=== PATIENT | female | born 1990 | race Caucasian/White ===

== ENCOUNTER 2017-06-21 02:29 | Observation (INO) | payer OTHER ==
[~2017-06-21] VITALS: Ht 162.6 cm; Wt 101.2 kg
--- NOTE | 2017-06-21 03:12 | ED GI/GU/ABDOMINAL COMPLAINT ---
History of Present Illness General Chief Complaint: Female Urogenital Problems Stated Complaint: PT C/O ECTOPIC ABD PAIN Source: patient Exam Limitations: no limitations Vital Signs & Intake/Output Vital Signs & Intake/Output Vital Signs Date Time Temp Pulse Resp B/P B/P Pulse O2 O2 Flow FiO2 Mean Ox Delivery Rate 06/21 0509 97 Room Air 06/21 0508 98.1 87 18 132/72 99 Room Air 06/21 0246 98.6 103 18 135/89 100 Room Air Allergies Coded Allergies: No Known Allergies (06/19/17) Triage Note: PT TO ED C.O LLQ PAIN SINCE 1 AM. WAS SEEN HERE 2 DAYS AGO FOR ECTOPIC DIAGNOSED BY DR FLORES VIS US AT HIS OFFICE. RECEIVED IM METHOTREXATE. STATES HAS NOT BEEN IN BAD PAIN UNTIL 1 AM. PAIN WOKE HER FROM SLEEP. TOOK 1000 MG TYLENOL WITH SLIGHT RELIEF. DENIES VAGINAL BLEEDING Triage Nurses Notes Reviewed? yes ? y Is pt currently ? No Onset: Abrupt Duration: hour(s): Timing: recent history Quality/Severity: burning, cramping, sharpness Location: left lower quadrant Radiation: no radiation Activities at Onset: none Prior Abdominal Problems: none Modifying Factors: Worsens With: palpation. Associated Symptoms: abdominal pain HPI: 26yo woman lmp 06/01/17, diagnosed with ectopic on 06/19, received methotrexate on 06/19 at approx 7pm, presents with left lower quadrant abdominal pain x 2 hours. "It just started to hurt... and that's where I have the ectopic." She notes no vaginal bleeding, nausea, vomiting, dizziness. She is otherwise well. Past History Travel History Traveled to [place] past 21 day No Medical History Any Pertinent Medical History? 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 No Review of Systems Review of Systems Constitutional: Reports: no symptoms. EENTM: Reports: no symptoms. Respiratory: Reports: no symptoms. Cardiovascular: Reports: no symptoms. GI: Reports: no symptoms. Genitourinary: Reports: no symptoms. Musculoskeletal: Reports: no symptoms. Skin: Reports: no symptoms. Neurological/Psychological: Reports: no symptoms. Hematologic/Endocrine: Reports: no symptoms. Immunologic/Allergic: Reports: no symptoms. All Other Systems: Reviewed and Negative Physical Exam Physical Exam General Appearance: well developed/nourished, mild distress Head: atraumatic, normal appearance Eyes: Bilateral: normal appearance. Ears, Nose, Throat, Mouth: hearing grossly normal, moist mucous membrane Neck: normal inspection, supple, full range of motion Respiratory: normal breath sounds, chest non-tender, no respiratory distress, quiet respiration, lungs clear Cardiovascular: regular rate/rhythm Gastrointestinal: normal bowel sounds, soft, mild left lower quadrant tenderness to palpation. no rebound. no guarding. Pelvic: no adnexal tenderness. cervix is closed. no vaginal bleeding. Back: normal inspection, normal range of motion Extremities: normal range of motion Neurologic/Psych: no motor/sensory deficits, awake, alert, oriented x 3 Skin: intact, normal color, warm/dry Core Measures ACS in differential dx? No Sepsis Present: No Sepsis Focused Exam Completed? No Progress Differential Diagnosis: ectopic vs other. Plan of Care: Orders Procedure Date/time Status Nothing by Mouth 06/21 B Active HUMAN BETA HCG TITRE 06/21 0800 Active CBC WITHOUT DIFFERENTIAL 06/21 0800 Active US-TRANSVAGINAL 06/21 0451 Active Saline Lock 06/[address] in observation 06/21 0451 Active Misc Message 06/21 0451 Active ED Holding Orders 06/21 0451 Active Patient Data 06/21 0451 Active Vital Signs 06/21 0451 Active Code Status 06/21 0451 Active Intake & Output 06/21 0308 Active HUMAN BETA HCG TITRE 06/21 0247 Complete COMPREHENSIVE METABOLIC PANEL 06/21 0247 Complete CBC WITHOUT DIFFERENTIAL 06/21 0247 Complete Current Medications Sig/Crow Start time Last Medication Dose Stop Time Status Admin Sodium Chloride 1,000 ML .Q8H 06/21 0500 UNVr 06/21 (Normal Saline 0.9%) 0507 Ketorolac 60 MG ONCE ONE 06/21 0415 UNVr 06/21 Tromethamine 06/21 0416 0440 (Toradol) Laboratory Tests 06/21/17 0318: Anion Gap 14, Estimated GFR > 60, BUN/Creatinine Ratio 14.3, Glucose 97, Calcium 9.0, Total Bilirubin 0.8, AST 23, ALT 29, Alkaline Phosphatase 65, Total Protein 7.4, Albumin 4.4, Globulin 3.0, Albumin/Globulin Ratio 1.5, Beta HCG, Quant 463.0, CBC w Diff NO MAN DIFF REQ, RBC 4.36, MCV 89.6, MCH 29.6, MCHC 33.1, RDW 12.7, MPV 7.4, Gran % 64.0, Lymphocytes % 27.2, Monocytes % 6.9, Eosinophils % 1.5, Basophils % 0.4, Absolute Granulocytes 5.6, Absolute Lymphocytes 2.4, Absolute Monocytes 0.6, Absolute Eosinophils 0.1, Absolute Basophils 0 Initial ED EKG: none Departure Departure Disposition: STILL A PATIENT Condition: Stable Clinical Impression Primary Impression: Ectopic Referrals: Radha CLIFFORD,Vanessa (PCP/Family) Departure Forms: Customer Survey General Discharge Information Observation Note Spoke With: Kashmir CLIFFORD,Jocelyne [facility] Place Patient In: Non-ED OBS Care Area Rationale for Observation: My rational for observation is as follows . 06/21/17, 5:17am.... pt with known ectopic ... appears to be responding appropriately to methothrexate... comfortable in ED, but merits u/s this am and serial hcg/cbc. ED Attending Observation Initial Observation Note: I have seen and personally examined MATILDE ARIAS on 06/21/17 at 0310. I agree with the current emergency department documentation. The disposition (admission or discharge) is uncertain at this time, she needs a period of observation for the following reason(s): The ED Nurse caring for this patient has been personally informed as to what the patient is being observed for.
[2017-06-21 03:43] LABS: ABSOLUTE BASOPHIL COUNT 0 /CUMM (0.0-0.2); ABSOLUTE EOSINOPHIL COUNT 0.1 /CUMM (0.0-0.7); ABSOLUTE GRANULOCYTE CT 5.6 /CUMM (1.4-6.5); ABSOLUTE LYMPH COUNT 2.4 /CUMM (1.2-3.4); ABSOLUTE MONOCYTE COUNT 0.6 /CUMM (0.10-0.60); BASOPHIL % 0.4 % (0.0-2.0); EOSINOPHIL % 1.5 % (0-5); HEMATOCRIT 39.1 % (37-47); MEAN CORPUSCULAR HGB 29.6 PG (27.0-31.0); MEAN CORPUSCULAR HGB CONC 33.1 G/DL (33.0-37.0); MEAN CORPUSCULAR VOLUME 89.6 FL (81.0-99.0); MEAN PLATELET VOLUME 7.4 FL (7.4-10.4); PLATELET COUNT 329 /CUMM (130-400); RBC DISTRIBUTION WIDTH 12.7 % (11.5-14.5); RED BLOOD CELL CT 4.36 /CUMM (4.20-5.40); WHITE BLOOD CELL COUNT 8.8 /CUMM (4.8-10.8)
--- NOTE | 2017-06-21 06:32 | ULTRASOUND REPORT ---
EXAMINATION: US TRANSVAGINAL CLINICAL INFORMATION: Known ectopic . Methotrexate given. COMPARISON: The prior imaging is not available for comparison. TECHNIQUE: Transabdominal and endovaginal sonographic evaluation of the pelvis. Endovaginal performed for improved visualization of the ectopic region. Doppler evaluation with spectral analysis performed. No adnexal mass on the right. The left ovary measures 2.8 x 2.4 x 2.9 cm. Normal arterial and venous spectral waveforms are seen. Adjacent to the left ovary in the left adnexa there is a hyperechoic mass with a gestational sac FINDINGS: Uterus is anteverted, measuring 9.1 x 3.7 x 5.9 cm. Endometrium is homogenous measuring 0.2 cm in thickness. Cervical length of 3.4 cm. No uterine mass. The right ovary measures 3.5 x 1.8 x 1.8 cm. Normal arterial and venous spectral waveforms are seen. There is no right adnexal mass. The left ovary measures 2.8 x 2.4 x 2.9 cm. Normal arterial and venous spectral waveforms are present. In the left adnexa adjacent to the left ovary there is a hyperechoic mass which measures 2.3 x 2 x 2.2 cm. There is a central area of low echogenicity which measures 0.6 x 0.4 x 0.5 cm which could represent a gestational sac. There is no pole seen. Small amount of free fluid in the cul-de-sac. IMPRESSION: The left adnexal ectopic is identified as detailed above. No pole is seen. Small amount of pelvic free fluid.
[2017-06-21 06:51] VITALS: BP 114/74
[2017-06-21 09:35] LABS: ABSOLUTE BASOPHIL COUNT 0 /CUMM (0.0-0.2); ABSOLUTE EOSINOPHIL COUNT 0.1 /CUMM (0.0-0.7); ABSOLUTE GRANULOCYTE CT 5.8 /CUMM (1.4-6.5); ABSOLUTE LYMPH COUNT 2.5 /CUMM (1.2-3.4); ABSOLUTE MONOCYTE COUNT 0.4 /CUMM (0.10-0.60); BASOPHIL % 0.4 % (0.0-2.0); GRANULOCYTE % 65.7 % (42.2-75.2); MEAN CORPUSCULAR HGB 29.7 PG (27.0-31.0); MEAN CORPUSCULAR HGB CONC 32.6 G/DL (33.0-37.0); MEAN PLATELET VOLUME 7.6 FL (7.4-10.4); PLATELET COUNT 283 /CUMM (130-400); RBC DISTRIBUTION WIDTH 12.7 % (11.5-14.5); RED BLOOD CELL CT 3.67 /CUMM (4.20-5.40); WHITE BLOOD CELL COUNT 8.8 /CUMM (4.8-10.8)
[2017-06-21 09:52] LABS: HEMATOCRIT 33.3 % (37-47)
--- NOTE | 2017-06-21 12:31 | Surgical Discharge Summary ---
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 Nauruan ETOH Use: denies use Review of Systems: Review of 13 point review of systems Hospital Course Course Attending Physician: Justice Weaver MD Primary Care Physician: Radha CLIFFORD,[facility] Course: 26-year-old with known ectopic with methotrexate treatment presents to the emergency room with one-hour acute onset of abdominal pain that had resolved by the time patient was seen in the ER. Patient is now hungry and would like to go home. She's had an ultrasound performed which shows a left ectopic no heart signs free fluid otherwise normal ultrasound. Patient's labs are stable at 33 Allergies: Coded Allergies: No Known Allergies (06/19/17) Disposition Summary Disposition Principal Diagnosis: Left ectopic Additional Diagnosis: Anemia Discharge Disposition: with Dr. Yusuf for blood draw on Friday and visit on Friday Discharge Instructions General Discharge Information Code Status: Full Code Patient's Diet: Regular Patient's Activity: Pelvic rest no heavy lifting Follow-Up Instructions/Appts: Friday for quantitative beta hCG. Patient have a low suspicion for abdominal pain to call the weekend
== END 2017-06-21 12:53 ==
LOC: ERH 02:29 → ERHI 04:51 → ENRESERV 05:22 → 2NB 06:32 → ENPENDDIS 12:28 → 2NB 12:53
PROVIDERS: Pediatrics
DX: O00.90 Unspecified ectopic pregnancy without intrauterine pregnancy (principal); D64.9 Anemia, unspecified; R10.2 Pelvic and perineal pain
CPT/HCPCS: 36592; 96372; G0378; J1885